=== PATIENT | male | born 1985 | race Caucasian/White ===

== ENCOUNTER 2024-01-19 18:22 | Emergency (ER) | payer BC, SELFPAY ==
--- NOTE | ~2024-01-19 | XR_ITS ---
XR chest 2V Ordering provider: Cristina Cisneros PA-C History: 38 years Male with . cp . Comparison: None. FINDINGS: MEDIASTINUM: The cardiac silhouette is not enlarged. LUNGS: No infiltrates, effusions or pneumothorax. OTHER: No free air under the diaphragm. IMPRESSION: No acute cardiopulmonary pathology. Reviewed, dictated and finalized at location A.
--- NOTE | ~2024-01-19 | CT_ITS ---
CTA chest PE protocol Ordering provider: Jackelyn Gauthier MD History: 38 years Male with . +ddimer, L chest pain, palpitations . Comparison: None. Technique: CT angiogram chest was performed following timed intravenous injection of contrast. Thin s lice axial images and reformatted coronal images were obtained. Three dimensional reformatted images of the chest were also obtained using a [employer] workstation. . Automated exposure control and iterati ve reconstruction technique were employed. The dose-length product was 638.87 mGy-cm. 100 mL Omnipaque 350 was given IV. Findings: PULMONARY ARTERIES: No pulmonary embolus. VISUALIZED THORACIC INLET: Normal. MEDIASTINUM: Aorta/coronary arteries: Mild atheromatous disease. Heart/other: The heart is not enlarged. Lymph nodes: No mediastinal or hilar adenopathy. LUNGS: No pulmonary nodules or masses. No infiltrates or effusions. No pneumothorax. VISUALIZED UPPER ABDOMEN: Right kidney hydronephrotic changes. Otherwise, the visualized upper abdome n is normal. MUSCULOSKELETAL: Soft tissues: The superficial soft tissues are normal. Bones: Normal spine. IMPRESSION: 1. No pulmonary embolism. 2. No acute cardiopulmonary pathology. 3. Hydronephrotic changes of the right kidney. Reviewed, dictated and finalized at location A.
--- NOTE | 2024-01-19 18:24 | ECG_ITS ---
Test Date: 2024-01-19 18:27:25 Measurements Intervals [place] Rate: 122 P: 57 [place]: 166 QRS: 56 QRSD: 109 T: 33 QT: 303 QTc: 432 Interpretive Statements SINUS TACHYCARDIA ABNORMAL RHYTHM ECG No previous ECG available for comparison Electronically Signed On 01-21-2024 13:21:54 CDT by Quang Vidales M.D.
[2024-01-19 18:35] VITALS: BP 152/94; PULSE 128; RESP 18; TEMP 36.6; O2SAT 99
[2024-01-19 19:03] VITALS: BP 140/96; PULSE 111; RESP 20; O2SAT 97
[2024-01-19 19:26] LABS: Basophils Absolute Auto 0.1 K/mm3 (0.0-0.1); Basophils Percent Auto 0.8 % (0.2-1.2); Eosinophils Percent Auto 0.3 % (0-4.4); Hematocrit 44.2 % (42.0-52.0); Hemoglobin 15.8 g/dL (14.0-18.0); Immature Granulocyte Absolute 0.02 K/mm3 (0.00-0.031); Immature Granulocyte Percent A 0.3 % (0-0.5); Lymphocytes Absolute Auto 2.03 K/mm3 (0.9-3.2); Lymphocytes Percent Auto 27.8 % (18.3-44.2); Mean Corpuscular HGB Conc 35.7 g/dl (32-36); Mean Corpuscular Volume 83.9 fl (80-100); Mean Platelet Volume 8.9 fl (7.4-10.4); Monocytes Absolute Auto 0.5 K/mm3 (0.1-0.6); Monocytes Percent Auto 6.4 % (2.6-8.5); Neutrophils Absolute Auto 4.7 K/mm3 (1.3-6.7); Neutrophils Percent Auto 64.4 % (45.5-73.1); Platelet Count Result 277 k/mm3 (150-375); Red Blood Count 5.27 M/mm3 (4.6-6.20); Red Cell Distribution Width 12.5 % (11.5-14.5); White Blood Count 7.3 K/mm3 (4.5-10.0)
[2024-01-19 19:38] LABS: Alanine Aminotransferase 47 U/L (6-50); Albumin Level 4.7 g/dL (3.5-5.1); Alkaline Phosphatase 99 U/L (38-126); Anion Gap 13 mmol/L (4-12); Aspartate Amino Transferase 33 U/L (17-59); Bilirubin,Total 0.5 mg/dL (0.2-1.3); Blood Urea Nitrogen 11 mg/dL (9-20); Calcium 9.8 mg/dL (8.4-10.2); Carbon Dioxide 27 mmol/L (22-30); Chloride 99 mmol/L (98-107); Estimated CRCL calculation 96 ml/min; Estimated Glomerular Filt Rate > 60; Glucose 109 mg/dL (65-110); Lipase 131 U/L (23-300); Potassium 3.9 mmol/L (3.4-5.0); Sodium 139 mmol/L (137-145)
[2024-01-19 19:42] LABS: Prothrombin Time 13.3 Seconds (11.1-14.7)
[2024-01-19 19:43] LABS: Partial Thromboplastin Time 25.2 Seconds (22.3-36.8)
[2024-01-19 19:50] LABS: Troponin I < 0.012 ng/mL (0.000-0.034)
[2024-01-19 19:52] LABS: D Dimer 1.45 ug/mL (<0.48)
[2024-01-19] MEDS: LACTATED RINGERS 1,000 ML 999 ML IV CONT (21:20)
[2024-01-19 21:43] VITALS: PULSE 87; RESP 15; O2SAT 100
[2024-01-19 22:16] LABS: Troponin I < 0.012 ng/mL (0.000-0.034)
--- NOTE | 2024-01-19 22:38 | ED.CHESTPAIN ---
HPI - Chest Pain General Chief Complaint: Chest Pain Stated Complaint: CP, back pain, left arm pain Time Seen by Provider: 01/19/24 19:04 History of Present Illness HPI narrative: Patient presenting with chest pain for the past week, he admits that he has been having on and off chest pain for years, has seen a security assistant for this in the past with negative workup. He states that when he goes to sleep it is fine, however when he gets up in the morning and goes to work he starts having some chest discomfort. No shortness of breath, no nausea or vomiting. Related Data Allergies Allergy/AdvReac Type Severity Reaction Status Date / Time codeine Allergy Hives Verified 01/19/24 19:05 meperidine [From Demerol] Allergy Vomiting Verified 01/19/24 19:05 Review of Systems Review of Systems: All systems reviewed & are unremarkable except as noted in HPI and below Exam Narrative: EXAMINATION OF ORGAN SYSTEMS/BODY AREAS: Constitutional: Vital signs per nursing GENERAL:[No acute distress, non-toxic appearing.] HEAD: Normal with no signs of head trauma. EYES: EOMI, conjunctiva normal ENT: Hearing grossly intact LUNGS: Nonlabored breathing. Clear to auscultation bilaterally HEART: [Regular rate and rhythm], equal radial pulses bilaterally ABD: [Soft], [nontender to palpation] EXT: Normal range of motion SKIN: [No rashes or lesions.] NEURO: [Alert and oriented x 3. No gross focal sensory or strength deficits.] PSYCH: Normal affect Course Vital Signs Vital signs: Vital Signs Temperature 97.9 F 01/19/24 18:35 Pulse Rate 128 H 01/19/24 18:35 Respiratory Rate 18 01/19/24 18:35 Blood Pressure 152/94 H 01/19/24 18:35 Pulse Oximetry 99 01/19/24 18:35 Oxygen Delivery Room Air 01/19/24 18:35 Temperature 97.9 F 01/19/24 18:35 Pulse Rate 81 01/19/24 23:09 Respiratory Rate 15 01/19/24 23:09 Blood Pressure 146/80 H 01/19/24 23:09 Pulse Oximetry 98 01/19/24 23:09 Oxygen Delivery Room Air 01/19/24 18:35 MDM - Chest Pain MDM Narrative Medical decision making narrative: ED COURSE AND MEDICAL DECISION MAKINM presenting with chest pain. EKG done in triage negative for acute ischemic changes. Cardiac workup is initiated. EKG: Performed in triage and interpreted by me. Sinus tachycardia. Rate 122. Normal axis. ND normal. QRS duration normal. QTc normal. No pathologic Q waves. No ST segment elevation or depression to suggest acute ischemia. No RV strain pattern. HEART score is 2 with no acute ischemic changes on EKG and negative troponins making ACS unlikely. D-dimer was elevated so I did obtain a CT PE that was thankfully negative for acute abnormality. Presentation not consistent with dissection or aneurysm without radiation of pain or pulse deficits and CT negative. On repeat evaluation just prior to discharge, the patient is no acute distress. I had a long discussion with the patient and with shared decision making, [he] is comfortable with outpatient management. [He] was given clear return instructions by myself in person as well as on discharge paperwork. Procedures: Pulse oximetry interpretation - not hypoxic. EKG interpretation. Review of medical records. Lab Data 01/19/24 19:20 01/19/24 19:20 Labs: Lab Results 01/19/24 01/19/24 Range/Units 19:20 21:42 WBC 7.3 (4.5-10.0) K/mm3 RBC 5.27 (4.6-6.20) M/mm3 Hgb 15.8 (14.0-18.0) g/dL Hct 44.2 (42.0-52.0) % MCV 83.9 (80-100) fl MCH 30.0 (26-34) pg MCHC 35.7 (32-36) g/dl RDW 12.5 (11.5-14.5) % Plt Count 277 (150-375) k/mm3 MPV 8.9 (7.4-10.4) fl Immature Gran % (Auto) 0.3 (0-0.5) % Neut % (Auto) 64.4 (45.5-73.1) % Lymph % (Auto) 27.8 (18.3-44.2) % Webster % (Auto) 6.4 (2.6-8.5) % Eos % (Auto) 0.3 (0-4.4) % Baso % (Auto) 0.8 (0.2-1.2) % Lymph # (Auto) 2.03 (0.9-3.2) K/mm3 Webster # (Auto) 0.5 (0.1-0.6) K/mm3 Eos # (Auto) 0.0
[2024-01-19 23:09] VITALS: BP 146/80; PULSE 81; RESP 15; O2SAT 98
== END 2024-01-19 23:09 | disposition home or self-care (01) ==
PROVIDERS: Physician Assistant; Emergency Provider Emergency Medicine; PCP Family Medicine
DX: R07.9 Chest pain, unspecified (principal)
CPT/HCPCS: 36415; 71046; 71275; 80053; 83690; 84484; 85025; 85380; 85610; 85730; 93005; 96360; 99284; J7120; Q9967